=== PATIENT | male | born 1975 | race Caucasian/White ===

== ENCOUNTER 2025-03-24 06:26 | Emergency (ER) | payer SELFPAY ==
[2025-03-24 06:29] VITALS: BP 140/94
--- NOTE | 2025-03-24 08:39 | ED.MUSCINJ ---
HPI-Injury
General
Chief Complaint: Musculo-Skeletal Complaint
Source: patient
Exam Limitations: none
Time Seen by Provider: 03/24/25 08:32
Nursing documentation reviewed up to this point in time: agreed with
History of Present Illness-Injury
Initial Injury comments:
50 yo male with no clinically significant pmhx is here for right anterior lower rib pain after reaching into a partially open car window yesterday, leaning on the window with the chest wall. Initiall some pain, slept well, woke this a.m. with
'excrutiating pain' only with certain movements and 'it feels like something is moving around in there.' Denies SOB, abdominal pain. Took Ibuprofen 3 hours ago with not much relief.
Past History
Past History
ED Past Medical History: None
ED Past Surgical History: Orthopedic
Social History
Tobacco: Smoker
Alcohol: Daily
Drug: None
Personal:
Living: with family
Review of Systems
Review of Systems
Allergies reviewed?: Yes
All Other Systems: ROS reviewed and negative except as documented in HPI and ROS
Phy Exam
Physical Exam
Physical Exam:
GENERAL: No acute distress. A&Ox3.
CONSTITUTIONAL: Afebrile.
RESPIRATORY: Regular respirations, nonlabored, lungs clear.
CARDIOVASCULAR: Regular rate and rhythm, no murmurs, no rubs.
GI: Soft, nontender
MUSCULOSKELETAL: Tender to palpate anterior lower right ribs, no swelling or discoloration. Moves with ease. Well perfused.
SKIN: Warm, dry, pink
PSYCH: Normal mood and affect. Well kept, interactive and appropriate
NEUROLOGIC: Awake, alert and oriented. No focal neurological deficits
Injury Course
Orders/Labs/Results
Orders:
Orders
03/24/25 08:21
Ribs, Right 3 View W/PA Chest [CR Ribs-right 3 Vw W/pa Chest*] Urgent
Comment:
Reason For Exam: pain after reaching
MDM/Problems Addressed
Differential Diagnosis Includes:
intercostal strain, contusion, rib fracture
MDM/Problems Addressed:
50 yo male with no clinically significant pmhx is here for right anterior lower rib pain after reaching into a partially open car window yesterday, leaning on the window with the chest wall. Initial some pain, slept well, woke this a.m. with
'excruciating pain' only with certain movements and 'it feels like something is moving around in there.' Denies SOB, abdominal pain. Took Ibuprofen 3 hours ago with not much relief.
No hypoxemia
CXR initially read by this examiner: No acute abnormality noted.
Rib belt applied with much comfort stated
*Pulse Oximetry
SaO2: 97
Oxygen Mode of Delivery: Room air
Patient hypoxic: no
*Critical Care Note
Total Time (30-74mins, 75-104mins- exclusive of procedures): Not Applicable
ED Attending Note
-
Portions of this chart may have been created with voice recognition software.� Occasional wrong word or��sound alike� substitutions may have occurred due to the inherent limitations of voice recognition software.
Discharge Plan
Departure
Patient Disposition: Home (Routine Discharge)
Date of Disposition: 03/24/25
Time of Disposition: 09:10
Patient with high blood pressure during this ER visit?: Yes
Condition: Good
Discharge Problem:
Traumatic injury of rib
Instructions: Using Cold for Pain, Rib fracture or bruised rib - ED (DC)
Referrals:
Romeo Smith MD [Family Provider, Family Practice] - As needed
Stand Alone Forms: Return to Work
Activity Restrictions/Additional Instructions:
As we discussed continue Tyelnol or Ibuprofen as needed for pain
Wear the rib belt since it is helping
Return to work on 03/27, no lifting over 5 lbs until 04/03 (one week after return to work).
Interventions
Interventions:
*Risk Screen - Suicide Last Done: 03/24/25 06:29
*General Assessment Last Done: 03/24/25 08:40
*Neglect/Abuse Screening Last Done: 03/24/25 06:29
*ED- Fall Risk Assessment Last Done: 03/24/25 08:40
*ED COVID-19 Vaccine History Last Done: 03/24/25 08:40
*ED Influenza Vaccine History Last Done: 03/24/25 08:40
*Nursing Disposition Last Done: 03/24/25 09:32
ED-Musculoskeletal Assessment Last Done: 03/24/25 08:40
Discharge Date and Time
Discharge Date/Time: 03/24/25 09:34
Print Language: [place]
[2025-03-24 08:40] VITALS: BP 158/100
--- NOTE | 2025-03-24 09:31 | EDRN ---
Reviewed discharge instructions with patient. Verbalized understanding. Ambulated with steady gait to the lobby.
[2025-03-24 09:32] VITALS: BP 154/94
== END 2025-03-24 09:34 | disposition home or self-care (01) ==
LOC: EMR 06:26
PROVIDERS: EMERGENCY PHYSICIAN Emergency Medicine; FAMILY PHYSICIAN Family Medicine
DX: S29.9XXA Unspecified injury of thorax, initial encounter (principal); R03.0 Elevated blood-pressure reading, without diagnosis of hypertension; F17.200 Nicotine dependence, unspecified, uncomplicated; X50.1XXA Overexertion from prolonged static or awkward postures, initial encounter; Y92.810 Car as the place of occurrence of the external cause
CPT/HCPCS: 99283; 71101